=== PATIENT | female | born 1990 | race American Indian/Alaskan Native ===

== ENCOUNTER 2019-03-09 09:17 | Outpatient (CLI) | payer OTHER ==
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
[2019-03-09] MEDS ORDERED: LACTATED RINGERS 1,000 ML ONE (12:21)
== END 2019-03-09 14:34 | disposition home or self-care (01) ==
LOC: TRG 09:17
PROVIDERS: ATTEND Obstetrics & Gynecology
DX: O26.893 Other specified pregnancy related conditions, third trimester (principal); V89.2XXA Person injured in unspecified motor-vehicle accident, traffic, initial encounter; Z3A.33 33 weeks gestation of pregnancy; Y93.89 Activity, other specified; Y92.89 Other specified places as the place of occurrence of the external cause; Y99.8 Other external cause status
CPT/HCPCS: 59025; 76819; 76820; 96360; J7120

== ENCOUNTER 2019-03-09 14:51 | Emergency (ER) | payer OTHER ==
[2019-03-09 15:36] VITALS: BP 102/61
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
== END 2019-03-09 17:45 | disposition home or self-care (01) ==
LOC: ED 14:51
DX: M54.2 Cervicalgia (principal); M54.5 Low back pain; V49.49XA Driver injured in collision with other motor vehicles in traffic accident, initial encounter; Y93.89 Activity, other specified; Y92.89 Other specified places as the place of occurrence of the external cause; Y99.8 Other external cause status
CPT/HCPCS: 99282

== ENCOUNTER 2019-04-26 15:39 | Inpatient (IN) | payer OTHER ==
--- NOTE | 2019-04-26 15:47 | Emergency Department Report ---
ED Female HPI - General Stated complaint: LABOR Time Seen by Provider: 04/26/19 15:42 - History of Present Illness Initial comments: Mrs. Brewster is a 28 yo female who presents in active labor. This is her second . Her due date is today. Her water broke today. She is have active frequent severe contractions. First involved twins requiring C- section. She has severe intermittent pain. Green substance discharged from vagina felt to be meconium. Followed by internship coordinator Angelina. ARNDT Complaint: other (active labor) -: Sudden, This afternoon Severity: severe Severity scale (0 -10): 10 Quality: cramping Consistency: constant, intermittent Are you Now?: Yes - Related Data Allergies Allergy/AdvReac Type Severity Reaction Status Date / Time No Known Allergies Allergy Unverified 03/09/19 10:19 ED Review of Systems ROS: Stated complaint: LABOR Other details as noted in HPI Comment: Unobtainable due to pts medical conditions (due to severe pain, review of systems deferred) ED Past Medical Hx - Past Medical History Hx Hypertension: No Hx Diabetes: No Hx Deep Vein Thrombosis: No Hx Renal Disease: No Hx Sickle Cell Disease: No Hx Seizures: No Hx Asthma: No Hx HIV: No - Social History Smoking Status: Never Smoker ED Physical Exam - General General appearance: alert, other (nontoxic but appears in severe pain) - Head Head exam: Present: atraumatic, normocephalic - Eye Eye exam: Present: normal appearance - ENT ENT exam: Present: mucous membranes moist - Neck Neck exam: Present: normal inspection, full ROM - Respiratory Respiratory exam: Present: normal lung sounds bilaterally. Absent: respiratory distress, wheezes, rales, stridor - Cardiovascular Cardiovascular Exam: Present: regular rate, normal rhythm, normal heart sounds. Absent: systolic murmur, diastolic murmur, rubs, gallop - GI/Abdominal GI/Abdominal exam: Present: soft, distended (gravid abdomen), normal bowel sounds. Absent: tenderness, guarding, rebound - Extremities Exam Extremities exam: Present: normal inspection - Back Exam Back exam: Present: normal inspection - Neurological Exam Neurological exam: Present: alert, oriented X3 - Psychiatric Psychiatric exam: Present: normal affect, normal mood - Skin Skin exam: Present: warm, dry, intact, normal color. Absent: rash ED Medical Decision Making - Medical Decision Making Mrs. Guallpa presents in active labor she is full-term. Her estimated due date is today. L&D nurse checked her cervix. She is 2 cm dilated. L&D nurse escorted patient to L&D with our ED team. Critical care attestation.: If time is entered above; I have spent that time in minutes in the direct care of this critically ill patient, excluding procedure time. ED Disposition Clinical Impression: Active labor at term, Previous section Disposition: DC/TX-70 ANOTHER TYPE HLTHCARE Is pt being admited?: No Does the pt Need Aspirin: No Condition: Stable
[2019-04-26] MEDS ORDERED: PEPCID IV ONE (16:12)
[2019-04-26] MEDS ORDERED: REGLAN IV ONE (16:12)
[2019-04-26] MEDS ORDERED: BICITRA PO ONE (16:12)
--- NOTE | 2019-04-26 16:26 | Anesthesia Day of Surgery ---
Anesthesia Day of Surgery - Day of Surgery Patient Examined: Yes Patient H&P Reviewed: Yes Patient is NPO: Yes Beta Blockers: No Cardiac Clearance: No Pulmonary Clearance: No Bertrand's Test: N/A
--- NOTE | 2019-04-26 16:26 | Anesthesia Consultation ---
Anesthesia Consult and Med Hx Date of service: 04/26/19 - Airway Anesthetic Teeth Evaluation: Good ROM Head & Neck: Adequate Mental/Hyoid Distance: Adequate Mallampati Class: Class II Intubation Access Assessment: Probably Good - Pulmonary Exam CTA: Yes - Cardiac Exam Cardiac Exam: RRR - Pre-Operative Health Status ASA Pre-Surgery Classification: ASA2 Proposed Anesthetic Plan: Spinal - Pulmonary Hx Smoking: No Hx Asthma: No Hx Respiratory Symptoms: No SOB: No COPD: No Home Oxygen Therapy: No Hx Pneumonia: No Hx Sleep Apnea: No - Cardiovascular System Hx Hypertension: No Hx Coronary Artery Disease: No Hx Heart Attack/AMI: No Hx Angina: No Hx Percutaneous Transluminal Coronary Angioplasty (PTCA): No Hx Cardia Arrhythmia: No Hx Pacemaker: No Hx Internal Defibrillator: No Hx Valvular Heart Disease: No Hx Heart Murmur: No Hx Peripheral Vascular Disease: No - Central Nervous System Hx Neuromuscular Disorder: No Hx Seizures: No CVA: No Hx Back Pain: Yes Hx Psychiatric Problems: No - Gastrointestinal Hx Ulcer: No Hx Gastroesophageal Reflux Disease: No - Endocrine Hx Renal Disease: No Hx End Stage Renal Disease: No Hx Cirrhosis: No Hx Liver Disease: No Hx Insulin Dependent Diabetes: No Hx Non-Insulin Dependent Diabetes: No Hx Thyroid Disease: No Hx Hypothyroidism: No Hx Hyperthyroidism: No - Hematic Hx Anemia: No Hx Sickle Cell Disease: No - Other Systems Hx Alcohol Use: No Hx Substance Use: No Hx Cancer: No Hx Obesity: Yes
--- NOTE | 2019-04-26 16:27 | History and Physical Report ---
History of Present Illness Date of examination: 04/26/19 Date of admission: 04/26/19 15:58 History of present illness: Patient presents c/o contractions, attempting to at home after c/s 3years ago for twins. Per RN she was brought in by her registered midwife bc/ meconium is present. Patient now desires delivery. Consent reviewed and signed Past History Past Medical History: no pertinent history Past Surgical History: section - Obstetrical History : 2 (twins c/s) Number of Living Children: 2 Medications and Allergies Allergies Allergy/AdvReac Type Severity Reaction Status Date / Time No Known Allergies Allergy Unverified 03/09/19 10:19 Active Meds: Active Medications Cefazolin Sodium (Ancef/Sterile Water 2 Gm/20 Ml) 2 gm in 20 mls @ 80 mls/hr IV PREOP NR; Protocol Stop: 04/26/19 23:59 Oxytocin/Sodium Chloride (Pitocin/Ns 20 Unit/1000ml Drip) 20 units in 1,000 mls @ 0 mls/hr IV TITR CHAPITO Lactated Ringer's (Lactated Ringers) 1,000 mls @ 2,250 mls/hr IV PREOP CHAPITO Stop: 04/27/19 17:27 Results All other labs normal. Assessment and Plan States [place] today, concern for limited information for this as well her previous c/s, unknown scar and active labor, recommend proceeding with delivery. patient voiced understanding and desires to proceed with c/s.
[2019-04-26 16:30] LABS: Hematocrit 34.6 % (30.3-42.9); Hemoglobin 10.9 gm/dl (10.1-14.3); Mean Corpuscular HGB Conc 32 % (30-34); Mean Corpuscular Volume 76 fl (79-97); Platelet Count 286 K/mm3 (140-440); Red Blood Count 4.55 M/mm3 (3.65-5.03); Red Cell Distribution Width 19.4 % (13.2-15.2)
[2019-04-26] MEDS ORDERED: SUBLIMAZE ONE (16:41)
[2019-04-26] MEDS ORDERED: WATER FOR IRRIG STERILE IR ONE (16:45)
[2019-04-26] MEDS ORDERED: NACL 0.9% IR ONE (16:45)
[2019-04-26] MEDS ORDERED: LACTATED RINGERS 1,000 ML IV SCH (17:00)
[2019-04-26] MEDS ORDERED: PITOCin/NS 20 UNIT/1000ML DRIP 20 UNITS/1,000 ML BAG IV SCH ×2 (17:00→20:31)
[2019-04-26] MEDS ORDERED: ANCEF/STERILE WATER 2 GM/20 ML 2 GM/20 ML SYRINGE IV NR (17:00)
[2019-04-26] MEDS ORDERED: PHENYLEPHRINE/NS Syringe 1,000 MCG/10 ML IV ONE (17:01)
[2019-04-26] MEDS ORDERED: DIPRIVAN 10 MG/ML IV ONE (17:03)
[2019-04-26] MEDS ORDERED: ZOFRAN ONE (17:12)
[2019-04-26] MEDS ORDERED: ZEMURON IV ONE (17:13)
[2019-04-26] MEDS ORDERED: BLOXIVERZ ONE (17:14)
[2019-04-26] MEDS ORDERED: QUELICIN ONE (17:14)
[2019-04-26] MEDS ORDERED: ROBINUL ONE (17:14)
[2019-04-26] MEDS ORDERED: VERSED ONE ×2 (17:16→17:42)
[2019-04-26] MEDS ORDERED: DILAUDID ONE (17:45)
--- NOTE | 2019-04-26 17:59 | Post Anesthesia Evaluation ---
- Post Anesthesia Evaluation Patient Participated: Yes Airway Patent: Yes Stable Respiratory Function: Yes Nausea/Vomiting: No Temp > 96.8F: Yes Pain Manageable: Yes Adequeate Hydration: Yes Anesthesia Complications: No Block Receding Appropriately: Not Applicable Patient on Ventilator: No
--- NOTE | 2019-04-26 18:06 | Operative Report ---
Operative Report Operative Report: Date: 04/26/2019 Preoperative diagnosis: 1. Intrauterine at 40 weeks 2. Previous delivery unknown scar 3. Active labor 4. Meconium-stained fluid 5. Walk in, unattached patient, unknown care course Postoperative diagnosis: 1. Intrauterine at 40 weeks 2. Previous delivery unknown scar 3. Active labor 4. Meconium-stained fluid 5. Walk in, unattached patient, unknown care course Procedure: Low uterine transverse incision for delivery Surgeon: Eleni Arteaga MD Doctor Of Naturopathic Medicine: Thiago Espinoza [facility] Anesthesia: Failed spinal, general endotracheal anesthesia Anesthesiologist: Dr. Sierra Estimated blood loss: 400 mL Urine out: 400 mL Findings: Live born male infant. Weight 7 lbs. 14 oz. Apgars 8 at 1 minute and 9 at 5 minutes. Uterus enlarged with adhesion to the right anterior abdominal wall otherwise grossly normal, tubes grossly normal, ovaries grossly normal. Procedure: After r consents were reviewed and signed, she was taken to the OR where spinal anesthesia was placed. She was then placed in the left lateral tilt position, and prepped and draped in the usual sterile fashion. Timeout was performed. While testing for appropriate level of anesthesia with spinal anesthesia patient was uncomfortable stating she was able to feel pinching and pain, the decision was made to proceed with general endotracheal anesthesia. After general anesthesia was induced, a Pfannenstiel incision was made and extended to the fascia which was incised and extended in the lateral directions. The overlying fascia was sharply dissected away from the underlying rectus muscles in the superior and inferior directions. The midline was entered bluntly. The vesicouterine fold was incised and with blunt dissection the bladder flap was created. A thin lower uterine segment was noted. A transverse incision was made in the lower uterine segment and extended in superiolateral direction with finger fractionation. Thick meconium stained fluid was noted. The infant was delivered from cephalic OP position. Mouth and nose were bulb suctioned. Spontaneous cry and excellent tone were noted. Cord was doubly clamped and cut. The was given to /resuscitation team present. The placenta was manually extracted. The uterus was then exteriorized and cleared of any further products of conception or placental tissue. The incision was reapproximated using 0 Vicryl in a running interlocking stitch. Grossly normal uterus, tubes and ovaries were noted. Further sutures 0 Vicryl was placed in a rotating fashion to reinforce the incision. Once hemostasis was noted, the uterus was allowed back into the pelvic cavity. The pelvis was irrigated with warm normal saline. Again hemostasis was noted . Surgicel applied for further hemostasis. Interceed was then placed to prevent adhesions. Then attention was turned to the rectus muscles. The rectus muscles reapproximated using 0 Vicryl in a simple interrupted stitch x 3. Once hemostasis was noted, the fascia was reapproximated using 0 Vicryl running stitch fashion. Once hemostasis was noted skin incision was reapproximated using 4-0 Vicryl on a Manan needle in a subcuticular manner. Counts were correct 3. Patient tolerated procedure well state recovery room in stable condition.
[2019-04-26 18:11] LABS: Basophils % (Manual) 0 % (0.0-1.8); Eosinophils % (Manual) 0 % (0.0-4.3); Total Cells Counted 100
[2019-04-26 18:12] LABS: Anisocytosis 1+; Hypochromasia 1+; Large Platelets 1+; Platelet Estimate Consistent w Auto
[2019-04-26] MEDS ORDERED: PHENERGAN PO PRN (18:26)
[2019-04-26] MEDS ORDERED: ZOFRAN IV PRN ×2 (18:26→20:31)
[2019-04-26] MEDS ORDERED: PHENERGAN PR PRN ×2 (18:26→20:31)
[2019-04-26] MEDS ORDERED: BENADRYL IV PRN (18:26)
[2019-04-26] MEDS: DILAUDID IV PRN ×3 (18:47→19:15)
[2019-04-26] MEDS ORDERED: SODIUM CHLORIDE FLUSH SYRINGE 10 ML IV SCH (19:00)
[2019-04-26] MEDS ORDERED: NARCAN 0.4 MG/1 ML IV PRN (20:31)
[2019-04-26] MEDS ORDERED: TYLENOL PO PRN (20:31)
[2019-04-26] MEDS ORDERED: LANSINOH TP PRN (20:31)
[2019-04-26] MEDS ORDERED: SODIUM CHLORIDE FLUSH SYRINGE 10 ML IV NR (20:31)
[2019-04-26] MEDS ORDERED: MORPHINE IV PRN ×2 (20:31)
[2019-04-26] MEDS ORDERED: TUCKS PAD TP PRN (20:31)
[2019-04-26 21:32] LABS: Hepatitis C Virus Antibody Non-Reactive (NonReactive)
[2019-04-26] MEDS: D5LR 1,000 ML IV SCH (21:50)
[2019-04-26] MEDS: ANCEF/NS 1 GM/50 ML 1 GM/50 ML BAG IV SCH (23:43)
[2019-04-26] MEDS: PERCOCET 5/325 PO PRN (23:49)
[2019-04-27] MEDS: DILAUDID IV PRN ×3 (01:32→22:12)
[2019-04-27] MEDS: D5LR 1,000 ML IV SCH (05:39)
[2019-04-27 06:47] LABS: Hematocrit 26.2 % (30.3-42.9); Hemoglobin 8.3 gm/dl (10.1-14.3)
--- NOTE | 2019-04-27 07:58 | Progress Note ---
Assessment and Plan 28y/o day #1 postop; no complaints, lochia scant, fundus firm, VSSAF, H&H 8.3/26.2 - asymptomatic anemia d/t acute blood loss. - Patient Problems (1) delivery delivered Current Visit: Yes Status: Acute Plan to address problem: continue postop pathway advance diet and activity as tolerated (2) Anemia due to acute blood loss Current Visit: Yes Status: Acute Plan to address problem: continue PNV FE supplementation Subjective - Subjective Date of service: 04/27/19 Principal diagnosis: postop day #1 s/p repeat c/s Patient reports: appetite normal, pain well controlled, ambulating normally, no dizzy ambulation, no flatus, no nauseated Ruth: doing well, nursing well Objective - Vital Signs Latest vital signs: Vital Signs Temp Pulse Resp BP BP Pulse Ox 04/27/19 05:06 98.2 F 93 H 20 112/64 95 04/27/19 00:02 98.3 F 71 20 102/55 99 04/26/19 20:00 98.4 F 95 H 20 116/48 95 04/26/19 19:32 80 12 122/73 92 04/26/19 19:15 75 11 L 118/62 95 04/26/19 19:00 72 16 115/65 96 04/26/19 18:45 77 16 118/67 96 04/26/19 18:30 84 20 112/71 100 04/26/19 18:15 88 20 108/58 99 04/26/19 18:00 85 21 83/44 97 04/26/19 17:55 100 H 26 H 96/51 97 04/26/19 17:53 96.4 F L 100 H 15 98/42 97 Intake and Output 04/26/19 04/26/19 04/27/19 15:59 23:59 07:59 Intake Total 1999 1337.083 Output Total 750 1500 Balance 1250 -162.917 Intake: IV 1999 977.083 D5lr 1,000 ml @ 125 mls/ 977.083 hr IV DIRECT CHAPITO Rx#: [id number] Oral 360 Output: Urine 750 1500 Indwelling Catheter 1500 Other: Total, Intake Amount 240 Total, Output Amount 600 Weight 81.647 kg Estimated Blood Loss 400 - Exam Breasts: Present: normal Cardiovascular: Present: Regular rate Lungs: Present: Normal air movement Abdomen: Present: normal appearance, soft Vulva: both: normal Uterus: Present: normal, firm, fundal height at umbilicus Extremities: Present: normal Deep Tendon Reflex Grade: Normal +2 Incision: Present: normal, dry, dressed - Labs Labs: Abnormal lab results 04/26/19 04/27/19 Range/Units 16:20 05:53 WBC 11.2 H (4.5-11.0) K/mm3 Hgb 8.3 L (10.1-14.3) gm/dl Hct 26.2 L D (30.3-42.9) % MCV 76 L (79-97) fl MCH 24 L (28-32) pg RDW 19.4 H (13.2-15.2) % Seg Neuts % (Manual) 74.0 H (40.0-70.0) % Nucleated RBC % 1.0 H (0.0-0.9) % Seg Neutrophils # Man 8.3 H (1.8-7.7) K/mm3
[2019-04-27] MEDS: MILK OF MAGNESIA PO PRN (08:34)
[2019-04-27] MEDS: IBUPROFEN PO PRN ×2 (08:35→18:32)
[2019-04-27] MEDS: FEOSOL PO SCH ×3 (08:35→22:05)
[2019-04-27] MEDS: ANCEF/NS 1 GM/50 ML 1 GM/50 ML BAG IV SCH (08:36)
[2019-04-27] MEDS: PERCOCET 5/325 PO PRN (12:23)
[2019-04-27] MEDS ORDERED: BOOSTRIX IM ONE (17:48)
[2019-04-28] MEDS: IBUPROFEN PO PRN ×4 (03:19→23:57)
[2019-04-28] MEDS: PERCOCET 5/325 PO PRN ×2 (03:19→16:45)
--- NOTE | 2019-04-28 06:23 | Discharge Summary ---
Providers - Providers Date of Admission: 04/26/19 15:58 Date of discharge: 04/28/19 (pt desires d/c) Attending physician: DIONISIO CASAREZ 04/26/19 20:31 Consult to Case Management [CONS] Routine Services Needed at Discharge: Home Health Services Notified:: yes Phone number called:: [phone] Time called:: 21:43 Comment:: put on patient chart Additional Physician Instructions: WALK -IN patient limited records of PNC Consult to Shutdown Coordinator [CONS] Routine Reason For Exam: Primary care physician: ORACLE DATABASE DEVELOPER Hospitalization Reason for admission: active labor Delivery: Procedure: repeat low transverse Episiotomy: none Laceration: none Incision: normal, dry, intact, dressed (to be removed now) complications: none Discharge diagnosis: IUP at term delivered baby: male Hospital course: pt arrived to [facility] in active labor prev c/s attempting to deliver @ home. An uncomplicated repeat section was performed. pt resting in bed C/O being sore Encouraged ambulation.VSS FF below umb Lochia small RN to remove dressing on her rounds. Encouraged pt to be OOB to shower. H&H 05/23 No evidence of dizziness walks w/o assistance. Doing well s/p c/s P: d/c today with instructions Pt states she will f/u with her OB of record. Condition at discharge: Good Disposition: DC-01 TO HOME OR SELFCARE - Discharge Diagnoses (1) delivery delivered Status: Acute Comment: will no Post-op visit in 1 week Plan - Discharge Medications Prescriptions: Docusate Sodium [Colace] 100 mg PO BID PRN #30 capsule PRN Reason: Constipation Lidocain2.5%/Prilocai2.5% [Emla] 5 gm TP ONCE #1 tube Ferrous Sulfate [Feosol 325 MG tab] 325 mg PO DAILY #90 tablet Ibuprofen [Motrin 800 MG tab] 800 mg PO TID PRN #30 tablet PRN Reason: Pain oxyCODONE /ACETAMINOPHEN [Percocet 5/325 mg] 1 - 2 tab PO Q6H PRN #20 tablet PRN Reason: Pain - Provider Discharge Summary Activity: routine, no sex for 6 weeks, no heavy lifting 4 weeks, no strenuous exercise Diet: routine Instructions: routine Additional instructions: [] Smoking cessation referral if applicable(refer to patient education folder for contact #) [] Refer to [facility]'s [facility] Booklet Call your doctor immediately for: * Fever > 100.5 * Heavy vaginal bleeding ( >1 pad per hour) * Severe persistent headache * Shortness of breath * Reddened, hot, painful area to leg or breast * Drainage or odor from incision. * Keep incision clean and dry at all times and follow doctor's instructions regarding bathing/showering - Follow up plan Follow up: PRIMARY CARE, [Primary Care Provider] - 7 Days NEEMA FAUSTIN CNM [Advanced Practice Nurse] - 7 Days (Congratulations! Please call your OBGYN for postoperative care. Take medications as prescribed. Call with any concerns. [facility] [phone])
[2019-04-28] MEDS: FEOSOL PO SCH ×3 (09:00→21:00)
[2019-04-28] MEDS: MILK OF MAGNESIA PO PRN (11:30)
--- NOTE | 2019-04-29 07:49 | Event Note ---
Date: 04/29/19 Pt resting, no complaints, Incision D&I. reviewed d/c home with patient planned for today, discussed wound care. 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 Discussed if she has any problems, please call as our practice performed the surgery and her f/u should be with myobgyn.
[2019-04-29] MEDS: FEOSOL PO SCH (08:58)
[2019-04-29] MEDS: PERCOCET 5/325 PO PRN (09:04)
[2019-04-29 09:16] VITALS: BP 103/67
== END 2019-04-29 11:05 | disposition home or self-care (01) | DRG 787 ==
LOC: EDSTATUS 15:53 → LD 15:58 → OB 20:14
PROVIDERS: ADMIT Obstetrics & Gynecology; ATTEND Obstetrics & Gynecology
PROC: 10D00Z1 Extraction of Products of Conception, Low, Open Approach (ICD-10-PCS; principal; 2019-04-26)
DX: O34.211 Maternal care for low transverse scar from previous cesarean delivery (principal); D62 Acute posthemorrhagic anemia; O99.214 Obesity complicating childbirth; E66.9 Obesity, unspecified; O99.02 Anemia complicating childbirth; O99.52 Diseases of the respiratory system complicating childbirth; J45.909 Unspecified asthma, uncomplicated; O77.0 Labor and delivery complicated by meconium in amniotic fluid; Z37.0 Single live birth; Z3A.40 40 weeks gestation of pregnancy
CPT/HCPCS: 36415; 85007; 85014; 85018; 85025; 85660; 86592; 86706; 86762; 86803; 86850; 86900; 86901; 87806; 88307; G0378; C1765; J0330; J0690; J1170; J2250; J2270; J2370; J2405; J2590; J2704; J2710; J3010; J7121

== ENCOUNTER 2019-11-07 12:48 | Emergency (ER) | payer BC, OTHER ==
[2019-11-07] MEDS ORDERED: IBUPROFEN 600 MG TAB PO ONE ×2 (13:34→13:36)
[2019-11-07 13:39] VITALS: BP 136/89
--- NOTE | 2019-11-07 13:39 | Emergency Department Report ---
ED ENT HPI - General Chief complaint: Sore Throat Stated complaint: THROAT Time Seen by Provider: 11/07/19 13:33 Source: patient Mode of arrival: Ambulatory Limitations: No Limitations - History of Present Illness Initial comments: This is a 29-year-old female nontoxic well in appearance with no signs of distress presents to the ED with complaint of sore throat and fever. Patient denies any drooling or hoarseness. Patient denies any other symptoms. Denies any chills, headache, nausea, vomiting, chest pain or SOB. Denies any other complaints. MD complaint: sore throat -: days(s) Location: throat Severity: mild Severity scale (0 -10): 8 Quality: aching Consistency: constant Improves with: none Worsens with: swallowing Associated Symptoms: pain with swallowing, sore throat. denies: fever, cough, gum swelling, toothache, tinnitus, hearing loss, discharge from ear, rhinorrhea - Related Data Previous Rx's Medication Instructions Recorded Last Taken Type Docusate Sodium [Colace] 100 mg PO BID PRN #30 capsule 04/26/19 Unknown Rx Ferrous Sulfate [Feosol 325 MG tab] 325 mg PO DAILY #90 tablet 04/26/19 Unknown Rx Ibuprofen [Motrin 800 MG tab] 800 mg PO TID PRN #30 tablet 04/26/19 Unknown Rx Lidocain2.5%/Prilocai2.5% [Emla] 5 gm TP ONCE #1 tube 04/26/19 Unknown Rx oxyCODONE /ACETAMINOPHEN [Percocet 1 - 2 tab PO Q6H PRN #20 tablet 04/26/19 Unknown Rx 5/325 mg] Amoxicillin/Potassium Clav 1 each PO Q12H #20 tablet 11/07/19 Unknown Rx [Augmentin 875-125 Tablet] Ibuprofen [Motrin] 600 mg PO Q8H PRN #20 tablet 11/07/19 Unknown Rx Nystas/Diphen/Xyl Visc/Mylanta 15 ml MM Q4H PRN 5 Days ml 11/07/19 Unknown Rx [Magic Mouthwash] Allergies Allergy/AdvReac Type Severity Reaction Status Date / Time No Known Allergies Allergy Verified 04/29/19 05:14 ED Dental HPI - General Chief complaint: Sore Throat Stated complaint: THROAT Time Seen by Provider: 11/07/19 13:33 Source: patient Mode of arrival: Ambulatory Limitations: No Limitations - Related Data Previous Rx's Medication Instructions Recorded Last Taken Type Docusate Sodium [Colace] 100 mg PO BID PRN #30 capsule 04/26/19 Unknown Rx Ferrous Sulfate [Feosol 325 MG tab] 325 mg PO DAILY #90 tablet 04/26/19 Unknown Rx Ibuprofen [Motrin 800 MG tab] 800 mg PO TID PRN #30 tablet 04/26/19 Unknown Rx Lidocain2.5%/Prilocai2.5% [Emla] 5 gm TP ONCE #1 tube 04/26/19 Unknown Rx oxyCODONE /ACETAMINOPHEN [Percocet 1 - 2 tab PO Q6H PRN #20 tablet 04/26/19 Unknown Rx 5/325 mg] Amoxicillin/Potassium Clav 1 each PO Q12H #20 tablet 11/07/19 Unknown Rx [Augmentin 875-125 Tablet] Ibuprofen [Motrin] 600 mg PO Q8H PRN #20 tablet 11/07/19 Unknown Rx Nystas/Diphen/Xyl Visc/Mylanta 15 ml MM Q4H PRN 5 Days ml 11/07/19 Unknown Rx [Magic Mouthwash] Allergies Allergy/AdvReac Type Severity Reaction Status Date / Time No Known Allergies Allergy Verified 04/29/19 05:14 ED Review of Systems ROS: Stated complaint: THROAT Other details as noted in HPI Constitutional: chills, fever Eyes: denies: eye pain, eye discharge, vision change ENT: throat pain. denies: ear pain Respiratory: denies: cough, shortness of breath, wheezing Cardiovascular: denies: chest pain, palpitations Endocrine: no symptoms reported Gastrointestinal: denies: abdominal pain, nausea, diarrhea Genitourinary: denies: urgency, dysuria, discharge Musculoskeletal: denies: back pain, joint swelling, arthralgia Skin: denies: rash, lesions Neurological: denies: headache, weakness, paresthesias Psychiatric: denies: anxiety, depression Hematological/Lymphatic: denies: easy bleeding, easy bruising ED Past Medical Hx - Past Medical History Previous Medical History?: Yes Hx Hypertension: No Hx Heart Attack/AMI: No Hx Diabetes: No Hx Deep Vein Thrombosis: No Hx Liver Disease: No Hx Renal Disease: No Hx Sickle Cell Disease: No Hx Seizures: No Hx Asthma: Yes Hx COPD: No Hx HIV: No - Surgical History Past Surgical History?: No Hx Pacemaker: No Hx Internal Defibrillator: No - Social History Smoking Status: Never Smoker - Medications Home Medications: Home Medications Medication Instructions Recorded Confirmed Last Taken Type Docusate Sodium [Colace] 100 mg PO BID PRN #30 capsule 04/26/19 Unknown Rx Ferrous Sulfate [Feosol 325 MG tab] 325 mg PO DAILY #90 tablet 04/26/19 Unknown Rx Ibuprofen [Motrin 800 MG tab] 800 mg PO TID PRN #30 tablet 04/26/19 Unknown Rx Lidocain2.5%/Prilocai2.5% [Emla] 5 gm TP ONCE #1 tube 04/26/19 Unknown Rx oxyCODONE /ACETAMINOPHEN [Percocet 1 - 2 tab PO Q6H PRN #20 tablet 04/26/19 Unknown Rx 5/325 mg] Amoxicillin/Potassium Clav 1 each PO Q12H #20 tablet 11/07/19 Unknown Rx [Augmentin 875-125 Tablet] Ibuprofen [Motrin] 600 mg PO Q8H PRN #20 tablet 11/07/19 Unknown Rx Nystas/Diphen/Xyl Visc/Mylanta 15 ml MM Q4H PRN 5 Days ml 11/07/19 Unknown Rx [Magic Mouthwash] ED Physical Exam - General Limitations: No Limitations General appearance: alert, in no apparent distress - Head Head exam: Present: atraumatic, normocephalic - Expanded ENT Exam Expanded Ear exam: Present: normal external inspection Mouth exam: Present: normal external inspection, tongue normal. Absent: drooling, trismus, muffled voice Teeth exam: Present: normal inspection Throat exam: Positive: tonsillar erythema, tonsillomegaly, other (uvula midline. no abscess). Negative: tonsillar exudate, R peritonsillar mass, L peritonsillar mass - Neck Neck exam: Present: normal inspection, full ROM. Absent: tenderness, meningismus, lymphadenopathy - Respiratory Respiratory exam: Present: normal lung sounds bilaterally. Absent: respiratory distress, wheezes, rales, rhonchi, stridor, chest wall tenderness, accessory muscle use, decreased breath sounds, prolonged expiratory - Cardiovascular Cardiovascular Exam: Present: regular rate, normal rhythm, normal heart sounds. Absent: irregular rhythm, systolic murmur, diastolic murmur, rubs, gallop - Extremities Exam Extremities exam: Present: full ROM - Back Exam Back exam: Present: full ROM - Neurological Exam Neurological exam: Present: alert, oriented X3, normal gait - Psychiatric Psychiatric exam: Present: normal affect, normal mood - Skin Skin exam: Present: warm, dry, intact, normal color. Absent: rash ED Course - Reevaluation(s) Reevaluation #1: 11/07/19 13:37 Patient is speaking in full sentences with no signs of distress noted. ED Medical Decision Making - Medical Decision Making Patient was instructed to Follow-up with a primary care doctor in 3-5 days or if symptoms worsen and continue return to emergency room as soon as possible. At time of discharge, the patient does not seem toxic or ill in appearance. No acute signs of distress noted. Patient agrees to discharge treatment plan of care. No further questions noted by the patient. Critical care attestation.: If time is entered above; I have spent that time in minutes in the direct care of this critically ill patient, excluding procedure time. ED Disposition Clinical Impression: Fever Qualifiers: Fever type: unspecified Qualified Code(s): R50.9 - Fever, unspecified Pharyngitis Qualifiers: Pharyngitis/tonsillitis etiology: unspecified etiology Qualified Code(s): J02.9 - Acute pharyngitis, unspecified Disposition: DC- TO HOME OR SELFCARE Is pt being admited?: No Does the pt Need Aspirin: No Condition: Stable Instructions: Pharyngitis (ED), Fever in Adults (ED) Additional Instructions: Follow-up with a primary care doctor in 3-5 days or if symptoms worsen and continue return to emergency room as soon as possible. Prescriptions: Amoxicillin/Potassium Clav [Augmentin 875-125 Tablet] 1 each PO Q12H #20 tablet Nystas/Diphen/Xyl Visc/Mylanta [Magic Mouthwash] 15 ml MM Q4H PRN 5 Days ml PRN Reason: sore throat Ibuprofen [Motrin] 600 mg PO Q8H PRN #20 tablet PRN Reason: Pain/Fever Referrals: PRIMARY CAREMD [Referring] - 3-5 Days ZEE ECHAVARRIA MD [Staff Physician] - 3-5 Days [facility] [Outside] - 3-5 Days Forms: Work/School Release Form(ED)
== END 2019-11-07 14:58 | disposition home or self-care (01) ==
LOC: ED 12:48
DX: J02.9 Acute pharyngitis, unspecified (principal); R50.9 Fever, unspecified; J45.909 Unspecified asthma, uncomplicated; Z79.899 Other long term (current) drug therapy
CPT/HCPCS: 99282